=== PATIENT | female | born 1950 | race Caucasian/White ===

== ENCOUNTER 2018-12-03 01:58 | Emergency (ER) | payer OTHER ==
[2018-12-03 02:59] VITALS: BMI 33.6
--- NOTE | 2018-12-03 03:11 | PDOC ---
History of Present Illness - General Chief Complaint: Head/Neck problem Stated Complaint: HIGH BLOOD PRESSURE Time Seen by Provider: 12/03/18 03:02 History Source: Patient Exam Limitations: Language Barrier (Venezuelan) - History of Present Illness Initial Comments: 12/03/18 04:11 Isabel Cordova is a 68F Venezuelan-speaking female with PMH thyroid disease, HTN, IDDM presenting with ACEVES and L arm numbness Reports new onset ACEVES in the back of her head since this morning. Has had ACEVES in the past week but not this bad, resolved spontaneously. Reports fevers, chills, nausea, vomiting. No migraine history. Denies chest pain, SOB, abdominal pain, urinary sx, C/D, changes to vision. Says she has some L arm numbness down to her hand. PMH: HTN on bid medication, unknown which one. Unspecified thyroid disease, unknown medication. IDDM, BG 270 yesterday AM, BG 320 in PM. No PSH. Past History - Past Medical History Allergies/Adverse Reactions: Allergies Allergy/AdvReac Type Severity Reaction Status Date / Time No Known Allergies Allergy Verified 12/03/18 02:59 - Psycho Social/Smoking Cessation Hx Smoking History: Never smoked Hx Alcohol Use: No Drug/Substance Use Hx: No Review of Systems - Review of Systems Able to Perform ROS?: Yes (Silk Opener used) Is the patient limited Kazakh proficient: Yes Constitutional: Yes: Chills, Fever HEENTM: No: Blurred Vision, Double Vision, Hearing Loss, Throat Swelling Respiratory: No: Cough, Shortness of Breath Cardiac (ROS): No: Chest Pain, Syncope ABD/GI: Yes: Nausea, Vomiting. No: Constipated, Diarrhea, Abdominal cramping Musculoskeletal: No: Symptoms Reported Neurological: Yes: Headache, Numbness (L arm). No: Seizure, Tingling, Unsteady Gait Endocrine: No: Symptoms Reported Hematologic/Lymphatic: No: Symptoms Reported All Other Systems: Reviewed and Negative *Physical Exam - Vital Signs Last Vital Signs Temp Pulse Resp BP Pulse Ox 98.8 F 68 17 151/69 99 12/03/18 02:00 12/03/18 02:00 12/03/18 02:00 12/03/18 02:00 12/03/18 02:00 - Physical Exam Comments: 12/03/18 04:34 CN 2-12 grossly intact decreased sensation to L arm to LT, 5/5 motor runner strength, full ROM R am grossly normal abd nontender, soft, no hernia heart RRR no MGR lungs CTAB with good chest rise no pedal edema PERRL, EOMI, no scleral icterus head NCAT General Appearance: Yes: Nourished, Appropriately Dressed, Mild Distress HEENT: positive: EOMI, FLOWER, Normal Voice, Symmetrical, Pharynx Normal, Hearing Grossly Normal. negative: Scleral Icterus (R), Scleral Icterus (L), Muffled/ Hoarse voice, Pharyngeal Erythema, Tonsillar Exudate, Tonsillar Erythema Neck: positive: Normal Thyroid, Supple. negative: Tender, Rigid, Lymphadenopathy (R), Lymphadenopathy (L) Respiratory/Chest: positive: Lungs Clear, Normal Breath Sounds. negative: Chest Tender, Respiratory Distress, Accessory Muscle Use, Crackles, Rales, Rhonchi, Stridor, Wheezing Cardiovascular: positive: Regular Rhythm, Regular Rate. negative: Murmur Gastrointestinal/Abdominal: positive: Normal Bowel Sounds, Flat, Soft, Protuberent. negative: Tender, Guarding, Rebound Musculoskeletal: positive: Normal Inspection. negative: CVA Tenderness Extremity: positive: Normal Capillary Refill, Normal Inspection, Normal Range of Motion Integumentary: positive: Normal Color, Dry, Warm Neurologic: positive: lockstitch waistband setter II-XII NML intact, Fully Oriented, Alert, Normal Mood/ Affect, Normal Response, Motor Strength 5/5, Numbness (L arm from hand to shoulder) ED Treatment Course - LABORATORY CBC & Chemistry Diagram: 12/03/18 03:30 12/03/18 03:30 Medical Decision Making - Medical Decision Making 12/03/18 04:11 Isabel Cordova is a 68F Venezuelan-speaking female with PMH thyroid disease, HTN, IDDM presenting with ACEVES and L arm numbness. Ddx concerning for SAH vs. mass lesion vs. complex migraine vs. hypertensive urgency vs. DKA vs. normal headache. Spinal pathology less likely, no pain, good motor runner strength. Evaluating broadly via: CMP CBC ECG CXR TSH Free T3/T4 UA/UC Head CT Percocet and Reglan IV for ACEVES. 12/03/18 04:36 ECG NSR with incomplete RBBB, HR 69, QTc 452 12/03/18 04:41 Labs notable for: TSH 6.07 consistent for hypothyroidism BG 200 No WBC elevation Trop <0.02 12/03/18 04:56 CT head no acute intracranial pathology. 12/03/18 06:48 Re-evaluated. Patient ACEVES and arm numbness resolved after Percocet/Reglan, feels better, ambulating without assistance. Stable to discharge home with neurology and PMD f/u. Discharge - Discharge Information Problems reviewed: Yes Clinical Impression/Diagnosis: Headache Qualifiers: Headache type: unspecified Headache chronicity pattern: acute headache Intractability: not intractable Qualified Code(s): R51 - Headache Condition: Fair Disposition: HOME - Admission No - Follow up/Referral Referrals: Yandel Baltazar MD [Staff Physician] - - Patient Discharge Instructions Patient Printed Discharge Instructions: DI for Headache Additional Instructions: Hoy fuiste evaluado por un dolor de leia. Dorita anlisis de juan no muestran signos de anemia, infeccin o desequilibrio electroltico. Gonzales tomografa computarizada no muestra ningn sangrado en gonzales cerebro, y gonzales radiografa de trax y ECG no muestran ninguna evidencia de enfermedad cardaca. Le dimos medicamentos llamados Percocet y Reglan para el dolor de leia y se sinti mejor. Gonzales presin arterial no era josé en la kahlil de emergencias. Gonzales dolor de leia es probablemente un dolor de leia normal y no es preocupante en dionicio momento. Checo un seguimiento con gonzales neurlogo para dorita enedelia de leia. Si no tiene haven , utilice la referencia que le estamos dando para el Dr. Baltazar. Consulte a gonzales mdico de atencin primaria para gonzales enfermedad de la tiroides. Checo un seguimiento con gonzales mdico de atencin primaria en los prximos 3 rangel para recibir ms atencin. Si experimenta nuseas, vmitos, dolor en el pecho, dolor abdominal o cualquier otro sntoma nuevo o preocupante, regrese a la kahlil de emergencias. Print Language: [place] IS[place] - Post Discharge Activity
--- NOTE | 2018-12-03 03:35 | PDOC ---
Attending Attestation - Resident Resident Name: Rainer Horton - ED Attending Attestation I have performed the following: I have examined & evaluated the patient, The case was reviewed & discussed with the resident, I agree w/resident's findings & plan - HPI HPI: 12/03/18 04:12 Pt comes with complaint of BP elevation and Headache. - Physicial Exam PE: 12/03/18 04:13 Agree with resident exam - Medical Decision Making 12/03/18 04:12 WBC normal Glc elevated at 200s 12/03/18 04:13 Pt is awaiting results. 12/03/18 04:18 cardiac enzymes negative
[2018-12-03 03:38] LABS: BASO % 0.6 % (0-2.0); EOS % 2.4 % (0-4.5); HEMATOCRIT 38.6 % (32.4-45.2); HEMOGLOBIN 12.7 GM/dL (10.7-15.3); LYMPH % 12.5 % (8-40); MCH 26.8 pg (25.7-33.7); MCHC 32.9 g/dl (32.0-36.0); MEAN CELL VOLUME 81.7 fl (80-96); MEAN PLT VOLUME 8.6 fl (7.5-11.1); MONO % 4.2 % (3.8-10.2); NEUT % 80.3 % (42.8-82.8); PLATELET COUNT 189 K/MM3 (134-434); RBC 4.73 M/mm3 (3.60-5.2); RDW 15.3 % (11.6-15.6); WHITE BLOOD COUNT 8.8 K/mm3 (4.0-10.0)
[2018-12-03] MEDS ORDERED: METOCLOPRAMIDE HCL INJECTION 10 MG/2 ML VIAL IVPUSH ONE (03:46)
[2018-12-03 04:19] LABS: ALBUMIN 3.5 g/dl (3.4-5.0); BILIRUBIN,TOTAL 0.3 mg/dL (0.2-1); BLOOD UREA NITROGEN 8.8 mg/dL (7-18); CALCIUM 8.2 mg/dL (8.5-10.1); CREATININE 0.6 mg/dL (0.55-1.3); POTASSIUM 3.9 mmol/L (3.5-5.1); TOT PROT 6.6 g/dl (6.4-8.2)
[2018-12-03] MEDS ORDERED: METOCLOPRAMIDE HCL INJECTION 10 MG/2 ML VIAL ONE (04:33)
[2018-12-03 06:02] VITALS: BP 127/68; PULSE 65; TEMP 98.3
--- NOTE | 2018-12-03 15:46 | EKG ---
Test Reason : Blood Pressure : / mmHG Vent. Rate : 069 BPM Atrial Rate : 069 BPM P-R Int : 184 ms QRS Dur : 108 ms QT Int : 422 ms P-R-T Axes : 046 -10 053 degrees QTc Int : 452 ms NORMAL SINUS RHYTHM INCOMPLETE RIGHT BUNDLE BRANCH BLOCK INFERIOR INFARCT , AGE UNDETERMINED ABNORMAL ECG NO PREVIOUS ECGS AVAILABLE Confirmed by JOSE ANGEL HOBSON MD ([id number]) on 12/03/2018 3:46:14 PM Referred By: Confirmed By:JOSE ANGEL HOBSON MD
== END 2018-12-03 05:34 | disposition home or self-care (01) ==
LOC: JER 01:58 → EDSEX 01:58 → JER 05:34
PROC: 3E033GC Introduction of Other Therapeutic Substance into Peripheral Vein, Percutaneous Approach (ICD-10-PCS; principal; 2018-12-03)
DX: R51 Headache (principal); I10 Essential (primary) hypertension; E11.9 Type 2 diabetes mellitus without complications; Z79.4 Long term (current) use of insulin; E03.9 Hypothyroidism, unspecified
CPT/HCPCS: 36415; 70450-TC; 71046-TC-FY; 80053; 82010; 82550; 82962; 84439; 84443; 84481; 84484; 85025; 85730; 93005; 93010; 96374; 99284-25

== ENCOUNTER 2019-08-10 23:25 | Inpatient (IN) | payer OTHER ==
[2019-08-10 23:43] VITALS: BMI 35.2
--- NOTE | 2019-08-10 23:47 | PDOC ---
History of Present Illness - General Chief Complaint: Blood Sugar Problem Stated Complaint: SUGER PROBLEMS - History of Present Illness Initial Comments: 69 yo femalewith PMH of HTN and DM presents to the ED with hyperglycemia. Her glucose was measured at a PCP to be ~600 and told to come to ED. She endorses nausea, muscle cramps, and chest pain. She took her home insulin schedule of 45 at home before coming in. Daughter is used as training and development assistant. Her baseline glucose runs from 250 to 300. She endorses dehydration. Past History - Medical History Allergies/Adverse Reactions: Allergies Allergy/AdvReac Type Severity Reaction Status Date / Time No Known Allergies Allergy Verified 12/03/18 02:59 - Psycho-Social/Smoking History Smoking History: Never smoked - Substance Abuse Hx (Audit-C & DAST Scrn) How often the patient has a drink containing alcohol: Never Score: In Men: 4 or > Positive; In Women: 3 or > Positive: 0 Screen Result (Pos requires Nsg. Audit-10AR): Negative In the last yr the pt used illegal drug/Rx for NonMed reason: No Score: Yes response is considered Positive: 0 Screen Result (Positive result requires Nsg. DAST-10): Negative Review of Systems - Review of Systems Constitutional: No: Chills, Fever, Night Sweats HEENTM: No: Blurred Vision, Double Vision, Nose Bleeding Respiratory: No: Orthopnea, Shortness of Breath, Wheezing Cardiac (ROS): Yes: Chest Pain, Chest Tightness. No: Irregular Heart Rate, P alpitations, Syncope ABD/GI: Yes: Nausea. No: Constipated, Diarrhea, Vomiting : No: Dysuria, Pain, Urgency Musculoskeletal: Yes: Muscle Pain (cramping). No: Muscle Weakness Integumentary: No: Erythema, Flushing, Lesions Neurological: Yes: Headache. No: Numbness, Tingling Psychiatric: No: Anxiety, Depression, Mood Swings Endocrine: No: See HPI, Intolerance to Cold, Intolerance to Heat *Physical Exam - Vital Signs Last Vital Signs Temp Pulse Resp BP Pulse Ox 98.6 F 90 20 184/93 H 99 08/10/19 23:37 08/10/19 23:37 08/10/19 23:37 08/10/19 23:37 08/10/19 23:37 - Physical Exam General Appearance: Yes: Nourished, Appropriately Dressed. No: Apparent Distress HEENT: positive: Normal Voice Respiratory/Chest: positive: Lungs Clear, Normal Breath Sounds. negative: Respiratory Distress Cardiovascular: positive: Regular Rhythm, Regular Rate, S1, S2 Musculoskeletal: positive: Normal Inspection. negative: Decreased Range of Motion Extremity: positive: Other (prolonged capillary refill) Integumentary: positive: Normal Color, Dry, Warm Neurologic: positive: Fully Oriented, Alert, Normal Mood/Affect, Normal Response ED Treatment Course - LABORATORY CBC & Chemistry Diagram: 08/11/19 01:06 08/11/19 01:06 Medical Decision Making - Medical Decision Making 69 yo female with PMH of T2DM recommended to come into ED by PCP for hyperglycemia and hyponatremia. Pt measured a glucose of 600 then took 45 units of her home insulin regimen. She reports nausea, cramps, and chest discomfort. Her Na was measured at 125, glucose 214. pH, bicarb, anion gap, BHB, and troponin were all normal. She is being admitted for hyponatremia. Discharge - Discharge Information Problems reviewed: Yes Clinical Impression/Diagnosis: Hyponatremia Condition: Stable - Admission Yes - Follow up/Referral - Patient Discharge Instructions - Post Discharge Activity
[2019-08-11 01:21] LABS: VENOUS BASE EXCESS 2.5 mmol/L (-2-2); VENOUS O2 SATURATION 84.3 % (70-80); VENOUS PCO2 47.1 mmHg (38-52); VENOUS PH 7.392 (7.310-7.410)
[2019-08-11 01:23] LABS: HEMOGLOBIN 11.5 GM/dL (10.7-15.3); MCH 26.9 pg (25.7-33.7); MEAN CELL VOLUME 81.5 fl (80-96); PLATELET COUNT 227 K/MM3 (134-434); RBC 4.29 M/mm3 (3.60-5.2); RDW 15.8 % (11.6-15.6); WHITE BLOOD COUNT 11.6 K/mm3 (4.0-10.0)
[2019-08-11 01:49] LABS: ALBUMIN 3.5 g/dl (3.4-5.0); ALK PHOS 133 U/L (45-117); ANION GAP 9 MMOL/L (8-16); BILIRUBIN,TOTAL 0.4 mg/dL (0.2-1); CALCIUM 7.9 mg/dL (8.5-10.1); CHLORIDE 89 mmol/L (98-107); CO2 27 mmol/L (21-32); CREATININE 0.6 mg/dL (0.55-1.3); GLUCOSE,RANDOM 214 mg/dL (74-106); POTASSIUM 3.5 mmol/L (3.5-5.1); SGOT/AST 18 U/L (15-37); SGPT/ALT 27 U/L (13-61); SODIUM 125 mmol/L (136-145); TOT PROT 6.9 g/dl (6.4-8.2)
[2019-08-11] MEDS ORDERED: SODIUM CHLORIDE 250 ML IV STA (01:58)
--- NOTE | 2019-08-11 02:12 | PN ---
Teaching Attending Note Name of Resident: Fadi Lopes ATTENDING PHYSICIAN STATEMENT I saw and evaluated the patient. I reviewed the resident's note and discussed the case with the resident. I agree with the resident's findings and plan as documented. SUBJECTIVE: Patient is a 69 year old woman with a PMH of HTN , Hypothyroidism, Insulin-treat ed DM and COVID-19 infection in June 2019 who presents to the ER with hyperglycemia. Her glucose was measured at [facility] in [place] and found to be around 600 with low sodium and told to come to the ER. Patient reports nausea, muscle cramps and chest pain. She took her home insulin schedule of 45 u at home before coming to the ER. Her baseline glucose runs from 250 to 300. She has had intermittent chest discomfort, nausea and right leg cramps. She denies fever, chills, cough, SOB, vomiting, abdominal pain, dysuria or diarrhea. Denies alcohol, tobacco or illicit drug use. No sick contacts or recent travels. Family history is unremarkable. OBJECTIVE: Alert Vital Signs Period Temp Pulse Resp BP Sys/Kaye Pulse Ox Last 24 Hr 98.6 F 90 20 184/93 99 HEENT: No Jaundice, eye redness or discharge, PERRLA, EOMI. Normocephalic, atraumatic. External ears are normal and hearing is grossly intact. No nasal discharge. Neck: Supple, nontender. No palpable adenopathy or thyromegaly. No JVD Chest: Good effort. Clear to auscultation and percussion. Heart: Regular. No S3, rub or murmur Abdomen: Not distended, soft, nontender and no HSM. No rebound or guarding. Normal bowel sounds. Ext: Peripheral pulses intact. No leg edema. Skin: Warm and dry. No petechiae, rash or ecchymosis. Neuro: Alert. Oriented x3. CN 2-12 grossly intact. Sensation grossly intact in all four extremities and DTR are symmetric. Psych: Appropriate mood and affect. Good insight. Current Medications Generic Name Dose Route Start Last Admin Trade Name Freq PRN Reason Stop Dose Admin Sodium Chloride 250 mls @ 250 mls/hr 08/11/19 01:58 Normal Saline - IV 08/11/19 02:57 ASDIR STA Abnormal Lab Results 07/05/20 07/05/20 07/05/20 01:06 01:06 01:06 WBC 11.6 H RDW 15.8 H POC VBG pO2 49.3 H VBG O2 Sat (Margie) 84.3 H VBG Base Excess 2.5 H Sodium 125 L Chloride 89 L Random Glucose 214 H Calcium 7.9 L Alkaline Phosphatase 133 H ASSESSMENT AND PLAN: 1. Uncontrolled DM/Hyponatremia Uncontrolled diabetes mellitus likely primarily due to a suboptimal regimen and then poor adherence. Hyponatremia likely partly due to hyperglycemia and ?hypothyroidism. Will check TSH, give IV and PO KCL and NS, limit free water intake and correct hyperglycemia. Will hold the home diabetes drugs and implement sliding scale insulin regimen. Provide comprehensive diabetes care with patient teaching and counseling about the importance of adherence to prescribed diabetes regimen, euglycemia, eye care and foot care. Leukocytosis may be stress induced, but will get urinalysis and CXR stat to rule out infection. EKG shows NSR at 98/minute and prolonged QTc [address]-T wave changes. Initial troponin is negative. Will avoid drugs that may prolong QTc. Viral testing for COVID-19 ordered and patient placed on airborne, droplet and contact isolation. Will continue comprehensive care for all of patients comorbid conditions. 2. Obesity Counseled on the risks associated with obesity. Will provide patient all the necessary assistance, counseling and positive reinforcement to facilitate weight loss. Consult blueprint clerk. 3. Uncontrolled hypertension Will contact her family to bring in a list of her medications. Will check urine protein/creatinine ratio. Will start Lisinopril 20 mg q HS and HCTZ 12.5 mg q am. Subsequently, will revise regimen to ensure [id number] excellent BP control. Patient counseled on the injurious effects of uncontrolled hypertension. Nonpharmacologic measures to control hypertension like weight loss, salt restriction and exercise stressed. Importance of adherence to treatment regimen and attainment of normotension emphasized. 4. DVT prophylaxis - Lovenox 40 mg SQ q 24 hours. 5. Advance directives - Full code
--- NOTE | 2019-08-11 02:19 | PDOC ---
Documentation entered by Lazarus Galeano SCRIBE, acting as scribe for Elaine John MD. Elaine John MD: This documentation has been prepared by the Froylan heck Nirvannie, SCRIBE, under my direction and personally reviewed by me in its entirety. I confirm that the documentation accurately reflects all work, treatment, procedures, and medical decision making performed by me. Attending Attestation - Resident Resident Name: Beth Hill - ED Attending Attestation I have performed the following: I have examined & evaluated the patient, The case was reviewed & discussed with the resident, I agree w/resident's findings & plan, Exceptions are as noted - HPI HPI: 08/11/19 01:03 The patient is a 69 year old female with a significant past medical history of thyroid disease, HTN, IDDM, and covid positive in 06/2019 who presents to the ED with low sodium in the blood. As per patient, she had outpatient labs done at [facility] in [place] a few days ago and her lab results came back today at 6pm with low sodium in the blood, prompting her arrival to the ED. - Physicial Exam PE: 08/11/19 01:03 GENERAL: Awake, alert, and fully oriented, in no acute distress HEAD: No signs of trauma EYES: PERRLA, EOMI, sclera anicteric, conjunctiva clear ENT: Auricles normal inspection, hearing grossly normal, nares patent, oropharynx clear without exudates. Moist mucosa NECK: Normal ROM, supple, no lymphadenopathy, JVD, or masses LUNGS: Breath sounds equal, clear to auscultation bilaterally. No wheezes, and no crackles HEART: Regular rate and rhythm, normal S1 and S2, no murmurs, rubs or gallops ABDOMEN: +Obese. Soft, nontender, normoactive bowel sounds. No guarding, no rebound. No masses EXTREMITIES: Normal range of motion, no edema. No clubbing or cyanosis. No cords, erythema, or tenderness NEUROLOGICAL: Cranial nerves II through XII grossly intact. Normal speech SKIN: Warm, Dry, normal turgor, no rashes or lesions noted. - Medical Decision Making 08/11/19 01:48 BNP normal Glc is 200s CBC normal WBC minimally elevated at 11 08/11/19 02:19 Pt will be admitted for hyponatremia Discharge - Discharge Information Problems reviewed: Yes Clinical Impression/Diagnosis: Hyponatremia Condition: Stable - Follow up/Referral - Patient Discharge Instructions - Post Discharge Activity
--- NOTE | 2019-08-11 03:25 | HP ---
CHIEF COMPLAINT: Hyponatremia and hyperglycemia after having had outpatient lab results Patient reports having had significant outpatient lab results that demonstrated an elevated blood sugar level of 600 and low blood sodium levels. When interviewed the patient is [place]ine[place] speaking. the patient endorses mild chest pain, nausation, and muscle cramps in her R LE. The patient is cooperative and denies diaphoresis, numbness and tingling, dizziness, and shortness of breath. PCP: Dr. De Leon HISTORY OF PRESENT ILLNESS: ER course was notable for: (1)Sodium - 125 (2)Glucose - 214 (3) Chest pain Recent Travel: no PAST MEDICAL HISTORY: Insulin treated diabetes Melitus, HTN, Hypothyroidism, Co vid infection june 2019 PAST SURGICAL HISTORY: Social History: Smoking:no Alcohol: no Drugs: no Allergies No Known Allergies Allergy (Verified 12/03/18 02:59) HOME MEDICATIONS: REVIEW OF SYSTEMS CONSTITUTIONAL: Absent: fever, chills, diaphoresis, generalized weakness, malaise, loss of appetite, weight change HEENT: Absent: rhinorrhea, nasal congestion, throat pain, throat swelling, difficulty swallowing, mouth swelling, ear pain, eye pain, visual changes CARDIOVASCULAR: chest pain Absent:syncope, palpitations, irregular heart rate, lightheadedness, peripheral edema RESPIRATORY: Absent: cough, shortness of breath, dyspnea with exertion, orthopnea, wheezing, stridor, hemoptysis GASTROINTESTINAL: Absent: abdominal pain, abdominal distension, nausea, vomiting, diarrhea, constipation, melena, hematochezia GENITOURINARY: Absent: dysuria, frequency, urgency, hesitancy, hematuria, flank pain, genital pain MUSCULOSKELETAL: Absent: myalgia, arthralgia, joint swelling, back pain, neck pain SKIN: Absent: rash, itching, pallor HEMATOLOGIC/IMMUNOLOGIC: Absent: easy bleeding, easy bruising, lymphadenopathy, frequent infections ENDOCRINE: Absent: unexplained weight gain, unexplained weight loss, heat intolerance, cold intolerance NEUROLOGIC: Absent: headache, focal weakness or paresthesias, dizziness, unsteady gait, seizure, mental status changes, bladder or bowel incontinence PSYCHIATRIC: Absent: anxiety, depression, suicidal or homicidal ideation, hallucinations. PHYSICAL EXAMINATION Vital Signs - 24 hr 08/10/19 23:37 Temperature 98.6 F Pulse Rate 90 Respiratory 20 Rate Blood Pressure 184/93 H O2 Sat by Pulse 99 Oximetry (%) GENERAL: Awake, alert, and fully oriented, in no acute distress. HEAD: Normal with no signs of trauma. EYES: Pupils equal, round and reactive to light, extraocular movements intact, sclera anicteric, conjunctiva clear. No lid lag. EARS, NOSE, THROAT: Ears normal, nares patent, oropharynx clear without exudates. Moist mucous membranes. NECK: Normal range of motion, supple without lymphadenopathy, JVD, or masses. LUNGS: Breath sounds equal, clear to auscultation bilaterally. No wheezes, and no crackles. No accessory muscle use. HEART: Regular rate and rhythm, normal S1 and S2 without murmur, rub or gallop. ABDOMEN: Soft, nontender, not distended, normoactive bowel sounds, no guarding, no rebound, no masses. No hepatomegaly or splenomegaly. MUSCULOSKELETAL: Normal range of motion at all joints. No bony deformities or tenderness. No CVA tenderness. UPPER EXTREMITIES: 2+ pulses, warm, well-perfused. No cyanosis. No clubbing. No peripheral edema. LOWER EXTREMITIES: 2+ pulses, warm, well-perfused. No calf tenderness. No peripheral edema. NEUROLOGICAL: Cranial nerves II-XII intact. Normal speech. Normal gait. PSYCHIATRIC: Cooperative. Good eye contact. Appropriate mood and affect. SKIN: Warm, dry, normal turgor, no rashes or lesions noted, normal capillary refill. Laboratory Results - last 24 hr 08/11/19 08/11/19 08/11/19 00:32 01:06 01:06 WBC 11.6 H RBC 4.29 Hgb 11.5 Hct 35.0 MCV 81.5 MCH 26.9 MCHC 33.0 RDW 15.8 H Plt Count 227 D MPV 8.0 VBG pH POC VBG pCO2 POC VBG pO2 VBG HCO3 VBG O2 Sat (Margie) VBG Base Excess Sodium 125 L Potassium 3.5 Chloride 89 L Carbon Dioxide 27 Anion Gap 9 BUN 11.0 Creatinine 0.6 Est GFR (CKD-EPI)AfAm 108.55 Est GFR (CKD-EPI)NonAf 93.66 POC Glucometer 213 Random Glucose 214 H Calcium 7.9 L Magnesium 2.0 Total Bilirubin 0.4 AST 18 ALT 27 Alkaline Phosphatase 133 H Creatine Kinase 130 Troponin I < 0.02 B-Natriuretic Peptide Total Protein 6.9 Albumin 3.5 Beta-Hydroxybutyrate 1.0 08/11/19 08/11/19 01:06 01:06 WBC RBC Hgb Hct MCV MCH MCHC RDW Plt Count MPV VBG pH 7.392 POC VBG pCO2 47.1 POC VBG pO2 49.3 H VBG HCO3 28.0 VBG O2 Sat (Margie) 84.3 H VBG Base Excess 2.5 H Sodium Potassium Chloride Carbon Dioxide Anion Gap BUN Creatinine Est GFR (CKD-EPI)AfAm Est GFR (CKD-EPI)NonAf POC Glucometer Random Glucose Calcium Magnesium Total Bilirubin AST ALT Alkaline Phosphatase Creatine Kinase Troponin I B-Natriuretic Peptide 106.3 Total Protein Albumin Beta-Hydroxybutyrate ASSESSMENT/PLAN: Patient is a 69F w a pmhx of Insulin treated diabetes Melitus, HTN, Hypothy roidism, Covid infection june 2019. Patient reports to the ED due to concern over hyperglycemia and hyponatremia on outpatient lab results. 1. Hyponatremia/hyperglycemia - patient non controlling diet and medication Regimen - Consult endocrine - A1C - TSH - could be a result of hypothyroidism - education on nutrition and proper diabetic care - education on medication adherence - COVID testing 2. HTn - CONTINUE blood pressure medication -monitor BP to maintain adequate goal - sodium controlled diet - 3. DVT prophylaxis - Lovenox 40mg SQ 4. Advanced directives -full code ATTENDING PHYSICIAN STATEMENT I saw and evaluated the patient. I reviewed the resident's note and discussed the case with the resident. I agree with the resident's findings and plan as documented. SUBJECTIVE: OBJECTIVE: ASSESSMENT AND PLAN:
[2019-08-11 03:49] LABS: PH,URINE 8.5 (5.0-8.0); URINE APPEARANCE CLEAR; URINE BILIRUBIN NEGATIVE (NEGATIVE); URINE COLOR YELLOW; URINE GLUCOSE (UA) NEGATIVE (NEGATIVE); URINE KETONE NEGATIVE (NEGATIVE); URINE LEUK ESTERASE TRACE (NEGATIVE); URINE NITRITE NEGATIVE (NEGATIVE); URINE PROTEIN NEGATIVE (NEGATIVE); URINE UROBILINOGEN 0.2 mg/dL (0.2-1.0)
[2019-08-11 04:20] LABS: URINE RBC 1 /uL (0-23.9); URINE WBC 14 /uL (0-25.8)
[2019-08-11 04:21] LABS: EPI CELLS 16 /uL (0-25.1); URINE BACTERIA 13174 /uL (0-1359)
[2019-08-11] MEDS ORDERED: CEFTRIAXONE 1 GM in DEXTROSE 5%-WATER - 50 ML IVPB SCH (04:53)
[2019-08-11] MEDS ORDERED: CEFTRIAXONE 1 GM/50 ML BAG ONE (05:13)
[2019-08-11] MEDS ORDERED: HEPARIN NA (PORCINE) 5,000 UNITS/ML 1ML VIAL ONE ×2 (05:13→15:09)
[2019-08-11] MEDS: HEPARIN NA (PORCINE) 5,000 UNITS/ML 1ML VIAL SQ SCH ×3 (05:25→21:56)
[2019-08-11 07:32] LABS: 24 HR URINE CREATININE < 13.0 mg/dL (30-150)
[2019-08-11 07:51] LABS: HEMATOCRIT 35.7 % (32.4-45.2); HEMOGLOBIN 11.7 GM/dL (10.7-15.3); MCH 26.3 pg (25.7-33.7); MCHC 32.7 g/dl (32.0-36.0); MEAN CELL VOLUME 80.4 fl (80-96); PLATELET COUNT 221 K/MM3 (134-434); RBC 4.44 M/mm3 (3.60-5.2); RDW 15.6 % (11.6-15.6)
[2019-08-11 08:04] LABS: INR 1.27 (0.83-1.09)
[2019-08-11 08:06] LABS: ACTIVATED PTT 27.5 SECONDS (25.2-36.5)
[2019-08-11 08:12] LABS: ALBUMIN 3.4 g/dl (3.4-5.0); BILIRUBIN,TOTAL 0.6 mg/dL (0.2-1); BLOOD UREA NITROGEN 7.7 mg/dL (7-18); CREATININE 0.4 mg/dL (0.55-1.3); MAGNESIUM 2.3 mg/dL (1.8-2.4); PHOSPHOROUS 4.3 mg/dL (2.5-4.9); POTASSIUM 3.6 mmol/L (3.5-5.1); TOT PROT 6.7 g/dl (6.4-8.2)
[2019-08-11] MEDS ORDERED: amLODIPine BESYLATE 5 MG TABLET (FP) ONE (09:03)
[2019-08-11] MEDS: amLODIPine BESYLATE 10 MG TABLET (FP) PO SCH (09:21)
[2019-08-11] MEDS ORDERED: HYDROCHLOROTHIAZIDE 12.5 MG CAPSULE (FP) PO SCH (10:00)
--- NOTE | 2019-08-11 14:02 | EKG ---
Test Reason : Blood Pressure : / mmHG Vent. Rate : 069 BPM Atrial Rate : 069 BPM P-R Int : 174 ms QRS Dur : 100 ms QT Int : 404 ms P-R-T Axes : 045 -26 068 degrees QTc Int : 432 ms NORMAL SINUS RHYTHM INFERIOR INFARCT (CITED ON OR BEFORE 03-DEC-2018) ABNORMAL ECG WHEN COMPARED WITH ECG OF 11-AUG-2019 01:38, NO SIGNIFICANT CHANGE WAS FOUND Confirmed by JAZLYN ZHU, JOSE ANGEL ([id number]) on 08/11/2019 2:02:25 PM Referred By: Confirmed By:JOSE ANGEL HOBSON MD
--- NOTE | 2019-08-11 14:03 | EKG ---
Test Reason : Blood Pressure : / mmHG Vent. Rate : 075 BPM Atrial Rate : 075 BPM P-R Int : 174 ms QRS Dur : 102 ms QT Int : 376 ms P-R-T Axes : 044 -20 062 degrees QTc Int : 419 ms NORMAL SINUS RHYTHM INCOMPLETE RIGHT BUNDLE BRANCH BLOCK INFERIOR INFARCT (CITED ON OR BEFORE 03-DEC-2018) ABNORMAL ECG WHEN COMPARED WITH ECG OF 03-DEC-2018 03:13, NO SIGNIFICANT CHANGE WAS FOUND Confirmed by JAZLYN ZHU, JOSE ANGEL ([id number]) on 08/11/2019 2:02:40 PM Referred By: Confirmed By:JOSE ANGEL HOBSON MD
[2019-08-11 15:27] LABS: EPI CELLS 9 /uL (0-25.1); HYALINE CASTS 0 /uL (0-3.1); URINE APPEARANCE CLEAR; URINE BACTERIA 76 /uL (0-1359); URINE BILIRUBIN NEGATIVE (NEGATIVE); URINE COLOR YELLOW; URINE GLUCOSE (UA) NEGATIVE (NEGATIVE); URINE KETONE NEGATIVE (NEGATIVE); URINE LEUK ESTERASE TRACE (NEGATIVE); URINE NITRITE NEGATIVE (NEGATIVE); URINE PROTEIN NEGATIVE (NEGATIVE); URINE RBC 3 /uL (0-23.9); URINE WBC 30 /uL (0-25.8)
[2019-08-11] MEDS: INSULIN SLIDING SCALE (NOVOLOG) 1 VIAL SQ SCH ×2 (18:37→22:16)
[2019-08-11] MEDS ORDERED: INSULIN (NOVOLOG) ASPART 100 UNITS/ML 10ML VIAL ONE (20:42)
[2019-08-12] MEDS: HEPARIN NA (PORCINE) 5,000 UNITS/ML 1ML VIAL SQ SCH ×3 (05:32→23:14)
[2019-08-12] MEDS: INSULIN SLIDING SCALE (NOVOLOG) 1 VIAL SQ SCH ×4 (05:59→23:42)
[2019-08-12 08:07] LABS: BASO % 0.8 % (0-2.0); EOS % 1.4 % (0-4.5); HEMATOCRIT 41.6 % (32.4-45.2); HEMOGLOBIN 13.7 GM/dL (10.7-15.3); LYMPH % 13.6 % (8-40); MCH 27.1 pg (25.7-33.7); MEAN CELL VOLUME 82.2 fl (80-96); MEAN PLT VOLUME 8.5 fl (7.5-11.1); MONO % 5.5 % (3.8-10.2); NEUT % 78.7 % (42.8-82.8); PLATELET COUNT 260 K/MM3 (134-434); RBC 5.06 M/mm3 (3.60-5.2); RDW 15.8 % (11.6-15.6); WHITE BLOOD COUNT 9.4 K/mm3 (4.0-10.0)
[2019-08-12 08:30] LABS: ALBUMIN 3.8 g/dl (3.4-5.0); ALK PHOS 108 U/L (45-117); ANION GAP 10 MMOL/L (8-16); BILIRUBIN,TOTAL 0.6 mg/dL (0.2-1); BLOOD UREA NITROGEN 9.2 mg/dL (7-18); CALCIUM 8.7 mg/dL (8.5-10.1); CHLORIDE 98 mmol/L (98-107); CO2 25 mmol/L (21-32); CREATININE 0.5 mg/dL (0.55-1.3); GLUCOSE,RANDOM 154 mg/dL (74-106); POTASSIUM 4.2 mmol/L (3.5-5.1); SGOT/AST 15 U/L (15-37); SGPT/ALT 27 U/L (13-61); SODIUM 133 mmol/L (136-145); TOT PROT 7.6 g/dl (6.4-8.2)
[2019-08-12] MEDS: amLODIPine BESYLATE 10 MG TABLET (FP) PO SCH (09:10)
--- NOTE | 2019-08-12 15:13 | EKG ---
Test Reason : Blood Pressure : / mmHG Vent. Rate : 069 BPM Atrial Rate : 069 BPM P-R Int : 172 ms QRS Dur : 100 ms QT Int : 386 ms P-R-T Axes : 041 -17 041 degrees QTc Int : 413 ms NORMAL SINUS RHYTHM INCOMPLETE RIGHT BUNDLE BRANCH BLOCK INFERIOR INFARCT (CITED ON OR BEFORE 03-DEC-2018) ABNORMAL ECG WHEN COMPARED WITH ECG OF 11-AUG-2019 04:25, NO SIGNIFICANT CHANGE WAS FOUND Confirmed by Gentry Niño ([id number]) on 08/12/2019 3:12:48 PM Referred By: [facility] Confirmed By:Gentry Niño
--- NOTE | 2019-08-12 17:14 | PN ---
Teaching Attending Note Name of Resident: Natacha Plunkett ATTENDING PHYSICIAN STATEMENT I saw and evaluated the patient. I reviewed the resident's note and discussed the case with the resident. I agree with the resident's findings and plan as documented. SUBJECTIVE: Patient seen and examined at bedside, Na improved 133 after DC of HCTZ, had short episode of L sided CP at rest in AM, trop/EKG neg. will obtain Echo and consult cardiology for workup. VSS. OBJECTIVE: GA comfortable, AAox3, speaking in full sentences HEENT NC/AT, EOMI, FLOWER, neck supple, no JVD Chest CTAB, no crackles or wheezing, no TTP L chest wall, no skin rash/vesicles CVS s1, S2+, RRR, no m/r/g appreciated Abd Soft, NT, ND, BS+ Ext No LE edema, ambulates w/o assistance Vital Signs - 24 hr 08/11/19 08/11/19 08/11/19 18:13 21:00 22:00 Temperature 98.2 F 98.2 F Pulse Rate 72 68 Respiratory 18 20 18 Rate Blood Pressure 143/73 142/79 O2 Sat by Pulse 99 Oximetry (%) 08/12/19 08/12/19 08/12/19 01:51 07:23 09:00 Temperature 98.6 F 98.8 F Pulse Rate 70 66 Respiratory 20 20 Rate Blood Pressure 122/58 L 145/75 O2 Sat by Pulse 96 Oximetry (%) 08/12/19 08/12/19 11:00 14:19 Temperature 98.8 F 98.4 F Pulse Rate 78 78 Respiratory 19 18 Rate Blood Pressure 141/81 132/66 O2 Sat by Pulse Oximetry (%) Microbiology 08/11/19 03:26 Urine - Urine Clean Catch Urine Culture - Final Contaminated: Please Repeat Laboratory Results - last 24 hr 08/11/19 08/11/19 08/11/19 05:50 17:53 22:11 WBC RBC Hgb Hct MCV MCH MCHC RDW Plt Count MPV Absolute Neuts (auto) Neutrophils % Lymphocytes % Monocytes % Eosinophils % Basophils % Nucleated RBC % Sodium Potassium Chloride Carbon Dioxide Anion Gap BUN Creatinine Est GFR (CKD-EPI)AfAm Est GFR (CKD-EPI)NonAf POC Glucometer 152 213 Random Glucose Calcium Total Bilirubin AST ALT Alkaline Phosphatase Creatine Kinase Troponin I Total Protein Albumin COVID-19 (LISA) Not detected 08/12/19 08/12/19 08/12/19 05:48 06:30 06:30 WBC 9.4 RBC 5.06 Hgb 13.7 Hct 41.6 D MCV 82.2 MCH 27.1 MCHC 33.0 RDW 15.8 H Plt Count 260 MPV 8.5 Absolute Neuts (auto) 7.4 Neutrophils % 78.7 Lymphocytes % 13.6 Monocytes % 5.5 Eosinophils % 1.4 Basophils % 0.8 Nucleated RBC % 0 Sodium 133 L Potassium 4.2 Chloride 98 Carbon Dioxide 25 Anion Gap 10 BUN 9.2 Creatinine 0.5 L Est GFR (CKD-EPI)AfAm 115.26 Est GFR (CKD-EPI)NonAf 99.45 POC Glucometer 158 Random Glucose 154 H Calcium 8.7 Total Bilirubin 0.6 AST 15 ALT 27 Alkaline Phosphatase 108 Creatine Kinase 63 Troponin I < 0.02 Total Protein 7.6 Albumin 3.8 COVID-19 (LISA) 08/12/19 08/12/19 11:22 16:40 WBC RBC Hgb Hct MCV MCH MCHC RDW Plt Count MPV Absolute Neuts (auto) Neutrophils % Lymphocytes % Monocytes % Eosinophils % Basophils % Nucleated RBC % Sodium Potassium Chloride Carbon Dioxide Anion Gap BUN Creatinine Est GFR (CKD-EPI)AfAm Est GFR (CKD-EPI)NonAf POC Glucometer 174 221 Random Glucose Calcium Total Bilirubin AST ALT Alkaline Phosphatase Creatine Kinase Troponin I Total Protein Albumin COVID-19 (LISA) Current Medications Generic Name Dose Route Start Last Admin Trade Name Freq PRN Reason Stop Dose Admin Amlodipine Besylate 10 mg 08/11/19 10:00 08/12/19 09:10 Norvasc - PO 10 mg DAILY NADYA Administration Heparin Sodium (Porcine) 5,000 unit 08/11/19 06:00 08/12/19 13:50 Heparin - SQ 5,000 unit TID NADYA Administration Insulin Aspart 1 vial 08/11/19 16:30 08/12/19 16:43 Novolog Vial Sliding Scale - SQ 2 units ACHS NADYA Administration Protocol ASSESSMENT AND PLAN: 69 F HCTZ induced hyponatremia IDDM HTN HLD prior COVID pneumonitis in June 2019 Angina Plan: Cont. to hold HCTZ Obtain 2nd set of trops/EKG, Echo to assess for wall motion Cardiology evaluation, patient may need stress testing if never done cont. ISS, keep BGM <180, optimize w/ Statin/ASA, switch Norvasc to MARISELA/ARB COVID negative Patient returns to Dr. De Leon's service in AM DVT ppx: Heparin SC
--- NOTE | 2019-08-12 18:16 | PN ---
Physical Exam: SUBJECTIVE: Patient seen and examined at bedside this morning, No acute events overnight. Patient reported substernal chest pain this morning that lasted about 5-10 minutes. Not related to movement, not pleuritic, not reproducible. Resolved spontaneously. No fevers, chills, headache, dizziness, shortness of breath, abdominal pain, urinary symptoms. OBJECTIVE: Vital Signs Temperature 98.4 F 08/12/19 14:19 Pulse Rate 78 08/12/19 14:19 Respiratory Rate 18 08/12/19 14:19 Blood Pressure 132/66 08/12/19 14:19 O2 Sat by Pulse Oximetry (%) 96 08/12/19 09:00 GENERAL: The patient is awake, alert, and fully oriented, in no acute distress. NECK: supple. LUNGS: Breath sounds equal, clear to auscultation bilaterally, no wheezes, no crackles, no accessory muscle use. HEART: Regular rate and rhythm, S1, S2. ABDOMEN: Soft, nontender, nondistended, normoactive bowel sounds. EXTREMITIES: 2+ pulses, warm, well-perfused, no edema. NEUROLOGICAL: Cranial nerves II through XII grossly intact. Normal speech,normal gait. PSYCH: Normal mood, normal affect. SKIN: Warm, dry, normal turgor, no rashes or lesions noted Laboratory Results - last 24 hr 08/11/19 08/11/19 08/11/19 05:50 17:53 22:11 WBC RBC Hgb Hct MCV MCH MCHC RDW Plt Count MPV Absolute Neuts (auto) Neutrophils % Lymphocytes % Monocytes % Eosinophils % Basophils % Nucleated RBC % Sodium Potassium Chloride Carbon Dioxide Anion Gap BUN Creatinine Est GFR (CKD-EPI)AfAm Est GFR (CKD-EPI)NonAf POC Glucometer 152 213 Random Glucose Calcium Total Bilirubin AST ALT Alkaline Phosphatase Creatine Kinase Troponin I Total Protein Albumin COVID-19 (LISA) Not detected 08/12/19 08/12/19 08/12/19 05:48 06:30 06:30 WBC 9.4 RBC 5.06 Hgb 13.7 Hct 41.6 D MCV 82.2 MCH 27.1 MCHC 33.0 RDW 15.8 H Plt Count 260 MPV 8.5 Absolute Neuts (auto) 7.4 Neutrophils % 78.7 Lymphocytes % 13.6 Monocytes % 5.5 Eosinophils % 1.4 Basophils % 0.8 Nucleated RBC % 0 Sodium 133 L Potassium 4.2 Chloride 98 Carbon Dioxide 25 Anion Gap 10 BUN 9.2 Creatinine 0.5 L Est GFR (CKD-EPI)AfAm 115.26 Est GFR (CKD-EPI)NonAf 99.45 POC Glucometer 158 Random Glucose 154 H Calcium 8.7 Total Bilirubin 0.6 AST 15 ALT 27 Alkaline Phosphatase 108 Creatine Kinase 63 Troponin I < 0.02 Total Protein 7.6 Albumin 3.8 COVID-19 (LISA) 08/12/19 08/12/19 11:22 16:40 WBC RBC Hgb Hct MCV MCH MCHC RDW Plt Count MPV Absolute Neuts (auto) Neutrophils % Lymphocytes % Monocytes % Eosinophils % Basophils % Nucleated RBC % Sodium Potassium Chloride Carbon Dioxide Anion Gap BUN Creatinine Est GFR (CKD-EPI)AfAm Est GFR (CKD-EPI)NonAf POC Glucometer 174 221 Random Glucose Calcium Total Bilirubin AST ALT Alkaline Phosphatase Creatine Kinase Troponin I Total Protein Albumin COVID-19 (LISA) Active Medications Generic Name Dose Route Start Last Admin Trade Name Freq PRN Reason Stop Dose Admin Heparin Sodium (Porcine) 5,000 unit 08/11/19 06:00 08/12/19 13:50 Heparin - SQ 5,000 unit TID NADYA Administration Insulin Aspart 1 vial 08/11/19 16:30 08/12/19 16:43 Novolog Vial Sliding Scale - SQ 2 units ACHS NADYA Administration Protocol Lisinopril 10 mg 08/13/19 10:00 Prinivil PO DAILY NADYA ASSESSMENT/PLAN: Patient is a 69 year old woman with a PMH of HTN , Hypothyroidism, Insulin- treated DM and COVID-19 infection in June 2019 who presents to the ER with hyperglycemia and hyponatremia. #DM -glucose now controlled -Insulin sliding scale implemented -Continue home Insulin Levemir 40u sq HS -BGM ACHS #Hyponatremia -Na 133 today, improving -will continue to monitor #Chest pain -r/o ACS -EKG no changes from previous -trop x1 negative, will order 2nd set -Echo ordered -On ASA and Lipitor -Cardiology consulted. #HTN -On Ramipril 2.5mg at home #Hypothyroidism -On synthroid 25mcg daily as per med rec with pharmacy -but not on patient's current meds -will order TSH and FT4 #FEN -Not on any standing fluids -Hyponatremia, BMP monitoring -Diabetic diet #Prophylaxis -Heparin 5000u sq tid #Disposition -full code -med surg Visit type - Emergency Visit Emergency Visit: Yes ED Registration Date: 08/11/19 Care time: The patient presented to the Emergency Department on the above date and was hospitalized for further evaluation of their emergent condition. - New Patient This patient is new to me today: Yes Date on this admission: 08/12/19 - Critical Care Critical Care patient: No ATTENDING PHYSICIAN STATEMENT I saw and evaluated the patient. I reviewed the resident's note and discussed the case with the resident. I agree with the resident's findings and plan as documented. SUBJECTIVE: OBJECTIVE: ASSESSMENT AND PLAN:
[2019-08-12] MEDS ORDERED: INSULIN (NOVOLOG) ASPART 100 UNITS/ML 10ML VIAL ONE (19:22)
[2019-08-12] MEDS ORDERED: ACETAMINOPHEN 325 MG TABLET (FP) PO ONE (20:30)
[2019-08-12] MEDS ORDERED: GABAPENTIN 300 MG CAPSULE PO SCH (22:00)
[2019-08-12] MEDS ORDERED: ATORVASTATIN CA 40 MG TABLET (FP) PO SCH (22:00)
[2019-08-12] MEDS ORDERED: predniSONE 5 MG TABLET (UD) PO SCH (22:00)
[2019-08-12] MEDS ORDERED: INSULIN (LEVEMIR) 100 UNITS/ML UNITS SQ ONE (22:00)
[2019-08-12] MEDS: ALBUTEROL SO4 HFA INHALER IH SCH (23:15)
[2019-08-13] MEDS: HEPARIN NA (PORCINE) 5,000 UNITS/ML 1ML VIAL SQ SCH ×2 (05:26→14:57)
[2019-08-13] MEDS: INSULIN SLIDING SCALE (NOVOLOG) 1 VIAL SQ SCH ×2 (06:02→12:14)
[2019-08-13] MEDS ORDERED: predniSONE 10 MG TABLET (UD) PO SCH (07:00)
[2019-08-13 07:46] LABS: BASO % 0.6 % (0-2.0); EOS % 1.1 % (0-4.5); HEMATOCRIT 42.3 % (32.4-45.2); HEMOGLOBIN 13.9 GM/dL (10.7-15.3); LYMPH % 15.5 % (8-40); MEAN CELL VOLUME 81.8 fl (80-96); MEAN PLT VOLUME 8.4 fl (7.5-11.1); MONO % 3.6 % (3.8-10.2); NEUT % 79.2 % (42.8-82.8); PLATELET COUNT 248 K/MM3 (134-434); RBC 5.17 M/mm3 (3.60-5.2); RDW 15.9 % (11.6-15.6); WHITE BLOOD COUNT 9.1 K/mm3 (4.0-10.0)
[2019-08-13 08:18] LABS: ALBUMIN 3.7 g/dl (3.4-5.0); BILIRUBIN,TOTAL 0.8 mg/dL (0.2-1); BLOOD UREA NITROGEN 8.1 mg/dL (7-18); CALCIUM 8.8 mg/dL (8.5-10.1); CREATININE 0.6 mg/dL (0.55-1.3); MAGNESIUM 2.5 mg/dL (1.8-2.4); POTASSIUM 4.4 mmol/L (3.5-5.1); TOT PROT 7.9 g/dl (6.4-8.2)
--- NOTE | 2019-08-13 09:28 | PN ---
Teaching Attending Note Name of Resident: Natacha Plunkett ATTENDING PHYSICIAN STATEMENT I saw and evaluated the patient. I reviewed the resident's note and discussed the case with the resident. I agree with the resident's findings and plan as documented. SUBJECTIVE: No new comp OBJECTIVE: Vital Signs Temperature 98.0 F 08/13/19 05:16 Pulse Rate 66 08/13/19 05:16 Respiratory Rate 18 08/13/19 05:16 Blood Pressure 140/79 08/13/19 05:16 O2 Sat by Pulse Oximetry (%) 97 08/12/19 21:00 General: Elderly woman, comfortable, not in distress HEENT mucous membranes moist, no anemia, no jaundice, PERRLA, no nystagmus Neck: No JVD, supple, no bruit, thyroid palpably normal, normal carotid pulsations. Chest: Non-tender, clear to auscultation bilaterally CVS: S1-S2 regular/irregular no murmur/gallop/rub Abdomen: Nondistended, soft, bowel sounds present. Extremities: No edema., No Calf tenderness, pulses present [employer]: AO X3 , no gross motor sensory deficit CBC, BMP 08/13/19 06:41 08/13/19 06:41 Active Medications Albuterol Sulfate (Ventolin Hfa Inhaler -) 2 puff IH RTID [facility] Last Admin: 08/12/19 23:15 Dose: 2 puff Documented by: Aspirin (Asa -) 81 mg PO DAILY [facility] Atorvastatin Calcium (Lipitor -) 40 mg PO HS [facility] Last Admin: 08/12/19 23:14 Dose: 40 mg Documented by: Folic Acid (Folic Acid -) 1 mg PO DAILY [facility] Gabapentin (Neurontin -) 300 mg PO HS [facility] Last Admin: 08/12/19 23:14 Dose: 300 mg Documented by: Heparin Sodium (Porcine) (Heparin -) 5,000 unit SQ TID [facility] Last Admin: 08/13/19 05:26 Dose: 5,000 unit Documented by: Insulin Aspart (Novolog Vial Sliding Scale -) 1 vial SQ ACHS [facility]; Protocol Last Admin: 08/13/19 06:02 Dose: 2 units Documented by: Insulin Detemir (Levemir Vial) 40 units SQ HS [facility] Lisinopril (Prinivil) 10 mg PO DAILY [facility] Non-Formulary Medication (Mirabegron [Myrbetriq]) 50 mg PO DAILY [facility] Prednisone (Deltasone -) 5 mg PO HS [facility] Last Admin: 08/12/19 23:14 Dose: 5 mg Documented by: Prednisone (Deltasone -) 10 mg PO AM [facility] Last Admin: 08/13/19 06:02 Dose: 10 mg Documented by: ASSESSMENT AND PLAN: 89-year-old female history of hypertension, hypercholesteremia, type 2 diabetes mellitus, chronic pain syndrome, complaint of chest pain normal serial cardiac enzyme no acute ST-T changes. History of COVID-19 recovered yesterday admitted with hyponatremia that was detected incid entally on routine laboratory. Acute issues: 1.Hyponatremia: Hypo-osmolar, euvolemic hyponatremia with urine sodium of 63 and urine respiratory 264: Most likely multifactorial possibility of SIADH now corrected continue salt liberal diet free water restriction. Follow-up TSH level. 2. Type 2 diabetes mellitus: Resume home medication on discharge 3. Hypercholesterolemia continue statin 4. History of COVID-19 COVID-19 test negative 5 reactive airway disease continue albuterol Rest continue current management, cleared by cardiology can be discharged home after echocardiogram. Discussed with the team
[2019-08-13] MEDS: ALBUTEROL SO4 HFA INHALER IH SCH ×3 (09:58→14:57)
[2019-08-13] MEDS ORDERED: LISINOPRIL 10 MG TABLET (FP) PO SCH (10:00)
[2019-08-13] MEDS ORDERED: ASPIRIN 81 MG CHEWABLE TABLETS PO SCH (10:00)
[2019-08-13] MEDS ORDERED: PATIENT'S OWN MEDICATION (NON-FORMULARY) (Mirabegron [Myrbetriq] 50 MG) PO SCH (10:00)
[2019-08-13] MEDS ORDERED: FOLIC ACID 1 MG TABLET (FP) PO SCH (10:00)
--- NOTE | 2019-08-13 10:38 | CON.CARD ---
Consult Consult Specialty:: Cardiology Referred by:: Hospitalist Reason for Consultation:: Cardiac evaluation - History of Present Illness Chief Complaint: Epigastic discomfort History of Present Illness: Patient is a 69 year old female (Slovak speaking) with underlying history of HTN, hypercholesterolemia, DM, hypothyroidism and bronchial asthma who presented to [facility] with hyperglycemia and hyponatremia. Her glucose was measured at 600's and with hyponatermia, she was recommended for admission. Currently she complains of epigastric discomfort, but denies chest pain, shortness of breath or palpitations. She complains of productive cough with white sputum. She denies fever or chills. She denies nausea, vomiting, diarrhea or abdominal pain. She denies headache or lightheadedness. - History Source History Provided By: Patient, Medical Record Limitations to Obtaining History: Language Barrier - Past Medical History Cardio/Vascular: Yes: HTN, Hyperlipdemia Pulmonary: Yes: Asthma Endocrine: Yes: Diabetes Mellitus, Hypothyroidism - Past Surgical History Additional Surgical History: Abdominal surgery for hernia - Alcohol/Substance Use Hx Alcohol Use: No History of Substance Use: reports: None - Smoking History Smoking history: Never smoked Home Medications - Allergies Allergies/Adverse Reactions: Allergies Allergy/AdvReac Type Severity Reaction Status Date / Time No Known Allergies Allergy Verified 08/11/19 15:49 - Home Medications Home Medications: Ambulatory Orders Albuterol Sulfate Inhaler - [Ventolin HFA Inhaler -] 2 puff IH TID 08/12/19 Aspirin 81 mg PO DAILY 08/12/19 Atorvastatin Ca [Lipitor] 40 mg PO DAILY 08/12/19 Folic Acid 1 mg PO DAILY 08/12/19 Gabapentin [Neurontin] 300 mg PO HS 08/12/19 Glipizide [Glipizide ER] 08/12/19 Glipizide [Glipizide ER] 5 mg PO DAILY 08/12/19 Insulin Detemir [Levemir Flextouch] 40 unit SQ HS 08/12/19 Levothyroxine [Synthroid -] 25 mcg PO DAILY 08/12/19 Methotrexate [Mexate -] 15 mg PO WEEKLY 08/12/19 Mirabegron [Myrbetriq] 50 mg PO DAILY 08/12/19 Prednisone 5 mg PO HS 08/12/19 Prednisone 10 mg PO AM 08/12/19 Ramipril 2.5 mg PO DAILY 08/12/19 Sertraline HCl [Zoloft] 100 mg PO DAILY 08/12/19 Sitagliptin Phos/Metformin HCl [Janumet 50-1,000 mg Tablet] 1 tablet PO DAILY 08/12/19 Family Medical History Family History: Denies Review of Systems - Review of Systems Constitutional: denies: Chills, Fever Cardiovascular: denies: Chest Pain, Palpitations, Shortness of Breath Respiratory: reports: Cough. denies: Hemoptysis, Orthopnea, PND, SOB, SOB on Exertion Gastrointestinal: denies: Abdominal Pain, Constipation, Diarrhea, Melena, Nausea, Rectal Bleeding, Vomiting Musculoskeletal: denies: Back Pain, Joint Pain Neurological: denies: Dizziness, Headache, Seizure, Syncope Vital Signs: Vital Signs Temperature 98.0 F 08/13/19 05:16 Pulse Rate 66 08/13/19 05:16 Respiratory Rate 18 08/13/19 05:16 Blood Pressure 140/79 08/13/19 05:16 O2 Sat by Pulse Oximetry (%) 97 08/12/19 21:00 Eyes: Yes: PERRL HENT: Yes: Atraumatic Neck: Yes: Supple Respiratory: Yes: CTA Bilaterally Gastrointestinal: Yes: Normal Bowel Sounds, Soft. No: Tenderness Cardiovascular: Yes: Regular Rate and Rhythm JVD: No PMI: Non-Displaced Heart Sounds: Yes: S1, S2. No: Gallop Murmur: No: Systolic Murmur Edema: No - Other Data Labs, Other Data: CBC, BMP 08/13/19 06:41 08/13/19 06:41 INR, PTT INR 1.27 (0.83-1.09) H 08/11/19 06:30 Troponin, BNP 08/12/19 08/12/19 06:30 18:25 Troponin I < 0.02 < 0.02 Laboratory Results - last 24 hr 08/11/19 08/12/19 08/12/19 05:50 06:30 11:22 WBC RBC Hgb Hct MCV MCH MCHC RDW Plt Count MPV Absolute Neuts (auto) Neutrophils % Lymphocytes % Monocytes % Eosinophils % Basophils % Nucleated RBC % Sodium 133 L Potassium 4.2 Chloride 98 Carbon Dioxide 25 Anion Gap 10 BUN 9.2 Creatinine 0.5 L Est GFR (CKD-EPI)AfAm 115.26 Est GFR (CKD-EPI)NonAf 99.45 POC Glucometer 174 Random Glucose 154 H Calcium 8.7 Magnesium Total Bilirubin 0.6 AST 15 ALT 27 Alkaline Phosphatase 108 Creatine Kinase 63 Troponin I < 0.02 Total Protein 7.6 Albumin 3.8 TSH Free T4 COVID-19 (LISA) Not detected 08/12/19 08/12/19 08/12/19 16:40 18:25 23:22 WBC RBC Hgb Hct MCV MCH MCHC RDW Plt Count MPV Absolute Neuts (auto) Neutrophils % Lymphocytes % Monocytes % Eosinophils % Basophils % Nucleated RBC % Sodium Potassium Chloride Carbon Dioxide Anion Gap BUN Creatinine Est GFR (CKD-EPI)AfAm Est GFR (CKD-EPI)NonAf POC Glucometer 221 221 Random Glucose Calcium Magnesium Total Bilirubin AST ALT Alkaline Phosphatase Creatine Kinase 48 Troponin I < 0.02 Total Protein Albumin TSH Free T4 COVID-19 (LISA) 08/13/19 08/13/19 08/13/19 05:56 06:41 06:41 WBC 9.1 RBC 5.17 Hgb 13.9 Hct 42.3 MCV 81.8 MCH 27.0 MCHC 33.0 RDW 15.9 H Plt Count 248 MPV 8.4 Absolute Neuts (auto) 7.2 Neutrophils % 79.2 Lymphocytes % 15.5 Monocytes % 3.6 L Eosinophils % 1.1 Basophils % 0.6 Nucleated RBC % 0 Sodium 132 L Potassium 4.4 Chloride 100 Carbon Dioxide 23 Anion Gap 10 BUN 8.1 Creatinine 0.6 Est GFR (CKD-EPI)AfAm 108.55 Est GFR (CKD-EPI)NonAf 93.66 POC Glucometer 212 Random Glucose 199 H Calcium 8.8 Magnesium 2.5 H Total Bilirubin 0.8 AST 13 L ALT 26 Alkaline Phosphatase 120 H Creatine Kinase Troponin I Total Protein 7.9 Albumin 3.7 TSH 3.74 Free T4 1.08 COVID-19 (LISA) Sinus rhythm with incomplete RBBB and ?inferior infarct Imaging - Results Chest X-ray: Report Reviewed (Unremarkable) EKG: Report Reviewed Problem List - Problems (1) Diabetes mellitus Code(s): E11.9 - TYPE 2 DIABETES MELLITUS WITHOUT COMPLICATIONS (2) Hyperglycemia Code(s): R73.9 - HYPERGLYCEMIA, UNSPECIFIED (3) HTN (hypertension) Code(s): I10 - ESSENTIAL (PRIMARY) HYPERTENSION (4) Hypercholesterolemia Code(s): E78.00 - PURE HYPERCHOLESTEROLEMIA, UNSPECIFIED (5) Hypothyroidism Code(s): E03.9 - HYPOTHYROIDISM, UNSPECIFIED (6) Bronchial asthma Code(s): J45.909 - UNSPECIFIED ASTHMA, UNCOMPLICATED (7) Hyponatremia Code(s): E87.1 - HYPO-OSMOLALITY AND HYPONATREMIA Assessment/Plan 1. HTN 2. DM with hyperglycemia 3. Hypercholesterolemia 4. Bronchial asthma 5. Hypothyroidism 6. Hyponatremia PLAN: 1. Echocardiography to assess LV/RV and valvular function 2. Continue Lisinopril 10 mg QD as tolerated 3. ASA 81 mg QD 4. Atorvastatin 40 mg QHS 5. Correct NA 6. DM management as per primary care team Further plans are to follow. Further cardiac work up can be done as outpatient and patient can follow up in the office. Call [facility], Jose Alfredo Hook MD
[2019-08-13] MEDS ORDERED: MIRABEGRON PO SCH ×2 (11:22)
[2019-08-13 13:56] VITALS: BP 128/72; PULSE 91; TEMP 98.6
--- NOTE | 2019-08-13 15:09 | ECHO ---
Name: MELONYJumana GEOVANNY GARDNER Exam:Adult Echocardiogram Study Date: 08/13/2019 01:47 PM Age: 69 yrs Reason For Study: Chest pain MMode/2D Measurements & Calculations IVSd: 1.1 cm Ao root diam: 3.1 cm LVIDd: 3.1 cm LA dimension: 3.0 cm LVIDs: 2.3 cm LVPWd: 1.3 cm LVPWs: 1.4 cm EDV(Teich): 39.1 ml ESV(Teich): 18.1 ml LAV (MOD-bp): 54.0 ml RV S Nino: 13.1 cm/sec Doppler Measurements & Calculations MV E max nino: 66.1 cm/sec Ao V2 max: 159.8 cm/sec MV A max nino: 95.3 cm/sec Ao max P.2 mmHg MV E/A: 0.69 MV dec time: 0.13 sec LV V1 max P.7 mmHg PA V2 max: 107.9 cm/sec LV V1 max: 138.7 cm/sec PA max P.7 mmHg Med Peak E' Nino: 4.5 cm/sec Med E/e': 14.8 Lat Peak E' Nino: 6.9 cm/sec Lat E/e': 9.6 Left Ventricle The left ventricular size, thickness and function are normal. Ejection Fraction = 54%. Abnormal diast olic relaxation. Right Ventricle The right ventricle is normal in size and function. Atria Normal left and right atrial size and function. Mitral Valve The mitral valve is normal in structure and function. Tricuspid Valve The tricuspid valve is normal in structure and function. Aortic Valve The aortic valve is normal in structure and function. Pulmonic Valve The pulmonic valve is normal in structure and function. Great Vessels The aortic root is normal size. Pericardium/Pleura There is no pericardial effusion. Interpretation Summary The left ventricular size, thickness and function are normal Abnormal diastolic relaxation The right ventricle is normal in size and function. Normal left and right atrial size and function. The mitral valve is normal in structure and function. The tricuspid valve is normal in structure and function. The aortic valve is normal in structure and function. The pulmonic valve is normal in structure and function. Ejection Fraction = 54%. The aortic root is normal size. MD Alan El 08/13/2019 03:09 PM
--- NOTE | 2019-08-13 15:29 | DS ---
Physical Exam: SUBJECTIVE: Patient seen and examined at bedside this morning. OBJECTIVE: Vital Signs Temperature 98.6 F 08/13/19 13:55 Pulse Rate 91 H 08/13/19 13:55 Respiratory Rate 18 08/13/19 13:55 Blood Pressure 128/72 08/13/19 13:55 O2 Sat by Pulse Oximetry (%) 98 08/13/19 09:00 PHYSICAL EXAM GENERAL: The patient is awake, alert, and fully oriented, in no acute distress. NECK: supple. LUNGS: Breath sounds equal, clear to auscultation bilaterally, no wheezes, no crackles, no accessory muscle use. HEART: Regular rate and rhythm, S1, S2. ABDOMEN: Soft, nontender, nondistended, normoactive bowel sounds. EXTREMITIES: 2+ pulses, warm, well-perfused, no edema. NEUROLOGICAL: Cranial nerves II through XII grossly intact. Normal speech,normal gait. PSYCH: Normal mood, normal affect. SKIN: Warm, dry, normal turgor, no rashes or lesions noted LABS Laboratory Results - last 24 hr 08/11/19 08/12/19 08/12/19 05:50 06:30 16:40 WBC RBC Hgb Hct MCV MCH MCHC RDW Plt Count MPV Absolute Neuts (auto) Neutrophils % Lymphocytes % Monocytes % Eosinophils % Basophils % Nucleated RBC % Sodium 133 L Potassium 4.2 Chloride 98 Carbon Dioxide 25 Anion Gap 10 BUN 9.2 Creatinine 0.5 L Est GFR (CKD-EPI)AfAm 115.26 Est GFR (CKD-EPI)NonAf 99.45 POC Glucometer 221 Random Glucose 154 H Calcium 8.7 Magnesium Total Bilirubin 0.6 AST 15 ALT 27 Alkaline Phosphatase 108 Creatine Kinase 63 Troponin I < 0.02 Total Protein 7.6 Albumin 3.8 TSH Free T4 COVID-19 ([facility]) Not detected 08/12/19 08/12/19 08/13/19 18:25 23:22 05:56 WBC RBC Hgb Hct MCV MCH MCHC RDW Plt Count MPV Absolute Neuts (auto) Neutrophils % Lymphocytes % Monocytes % Eosinophils % Basophils % Nucleated RBC % Sodium Potassium Chloride Carbon Dioxide Anion Gap BUN Creatinine Est GFR (CKD-EPI)AfAm Est GFR (CKD-EPI)NonAf POC Glucometer 221 212 Random Glucose Calcium Magnesium Total Bilirubin AST ALT Alkaline Phosphatase Creatine Kinase 48 Troponin I < 0.02 Total Protein Albumin TSH Free T4 COVID-19 ([facility]) 08/13/19 08/13/19 08/13/19 06:41 06:41 12:11 WBC 9.1 RBC 5.17 Hgb 13.9 Hct 42.3 MCV 81.8 MCH 27.0 MCHC 33.0 RDW 15.9 H Plt Count 248 MPV 8.4 Absolute Neuts (auto) 7.2 Neutrophils % 79.2 Lymphocytes % 15.5 Monocytes % 3.6 L Eosinophils % 1.1 Basophils % 0.6 Nucleated RBC % 0 Sodium 132 L Potassium 4.4 Chloride 100 Carbon Dioxide 23 Anion Gap 10 BUN 8.1 Creatinine 0.6 Est GFR (CKD-EPI)AfAm 108.55 Est GFR (CKD-EPI)NonAf 93.66 POC Glucometer 265 Random Glucose 199 H Calcium 8.8 Magnesium 2.5 H Total Bilirubin 0.8 AST 13 L ALT 26 Alkaline Phosphatase 120 H Creatine Kinase Troponin I Total Protein 7.9 Albumin 3.7 TSH 3.74 Free T4 1.08 COVID-19 ([facility]) HOSPITAL COURSE: Date of Admission:08/11/19 Date of Discharge: 08/13/19 Patient is a 69 year old woman with a PMH of HTN , Hypothyroidism, Insulin- treated DM and COVID-19 infection in June 2019 who presents to the ER with hyperglycemia and hyponatremia. #DM -glucose now controlled -Insulin sliding scale implemented -Continue home Insulin Levemir 40u sq HS #Hyponatremia -improving -will continue to monitor -continue liberal salt diet, restrict free water #Chest pain -r/o ACS -EKG no changes from previous -trop x2 negative -Echo showed normal LV, Abnormal diastolic relaxation -On ASA and Lipitor -Cardiology consulted. Recommended follow up as outpatient. #HTN -On Ramipril 2.5mg at home #Hypothyroidism -On synthroid 25mcg daily as per med rec with pharmacy -but not on patient's current meds -TSH and FT4 normal -follow up with pcp Minutes to complete discharge: 38 Discharge Summary Problems reviewed: Yes Reason For Visit: HYPONATREMIA Current Active Problems Bronchial asthma (Acute) Diabetes mellitus (Acute) HTN (hypertension) (Acute) Hypercholesterolemia (Acute) Hyperglycemia (Acute) Hyponatremia (Acute) Hypothyroidism (Acute) Condition: Stable - Instructions Diet, Activity, Other Instructions: Your visit You were admitted to the hospital because you were found to have low sodium. This is the salt content in your blood. You were initially given IV fluids and your sodium level improved. You were also evaluated by the heart doctor because you reported chest pain. An ultrasound of your heart was done. You may follow up with Dr. Hook at his clinic for further work-up. A referral has been provided. Medications please continue your home medications as prescribed. Follow up Please follow up with your primary care doctor within 1-2 weeks. Please follow up with the loop cutter (Dr. Hook) in 1-2 weeks. Please call the office at [phone] to schedule an appointment. Additional info Please call 911 or go to the ED if with any worsening fevers, chills, headache, dizziness, chest pain, shortness of breath, belly pain, or any new concerns noted. Referrals: Jose Alfredo Hook MD [Staff Physician] - Cody De Leon MD [Staff Physician] - Disposition: HOME - Home Medications Comprehensive Discharge Medication List: Ambulatory Orders Albuterol Sulfate Inhaler - [Ventolin HFA Inhaler -] 2 puff IH TID 08/12/19 Aspirin 81 mg PO DAILY 08/12/19 Atorvastatin Ca [Lipitor] 40 mg PO DAILY 08/12/19 Folic Acid 1 mg PO DAILY 08/12/19 Gabapentin [Neurontin] 300 mg PO HS 08/12/19 Glipizide [Glipizide ER] 5 mg PO DAILY 08/12/19 Insulin Detemir [Levemir Flextouch] 40 unit SQ HS 08/12/19 Levothyroxine [Synthroid -] 25 mcg PO DAILY 08/12/19 Methotrexate [Mexate -] 15 mg PO WEEKLY 08/12/19 Mirabegron [Myrbetriq] 50 mg PO DAILY 08/12/19 Prednisone 5 mg PO HS 08/12/19 Prednisone 10 mg PO AM 08/12/19 Ramipril 2.5 mg PO DAILY 08/12/19 Sertraline HCl [Zoloft] 100 mg PO DAILY 08/12/19 Sitagliptin Phos/Metformin HCl [Janumet 50-1,000 mg Tablet] 1 tablet PO DAILY 08/12/19 This patient is new to me today: No Emergency Visit: Yes ED Registration Date: 08/11/19 Care time: The patient presented to the Emergency Department on the above date and was hospitalized for further evaluation of their emergent condition. Critical Care patient: No - Discharge Referral Referred to [facility] No ATTENDING PHYSICIAN STATEMENT I saw and evaluated the patient. I reviewed the resident's note and discussed the case with the resident. I agree with the resident's findings and plan as documented. SUBJECTIVE: OBJECTIVE: ASSESSMENT AND PLAN:
[2019-08-13] MEDS ORDERED: INSULIN (LEVEMIR) 100 UNITS/ML UNITS SQ SCH (22:00)
== END 2019-08-13 16:38 | disposition home health service (06) | DRG 638 ==
LOC: JER 23:25 → JERBED 08-11 03:21 → J7W 08-11 19:05
PROVIDERS: ADMIT Internal Medicine; ATTEND Internal Medicine
DX: E11.65 Type 2 diabetes mellitus with hyperglycemia (principal); E87.1 Hypo-osmolality and hyponatremia; E03.9 Hypothyroidism, unspecified; Z79.4 Long term (current) use of insulin; I10 Essential (primary) hypertension; Z86.19 Personal history of other infectious and parasitic diseases; E66.9 Obesity, unspecified; Z68.35 Body mass index [BMI] 35.0-35.9, adult; R07.9 Chest pain, unspecified; G89.4 Chronic pain syndrome; E78.00 Pure hypercholesterolemia, unspecified; J45.909 Unspecified asthma, uncomplicated
CPT/HCPCS: 36415; 71045-TC-FY; 80053; 81003; 82010; 82436; 82550; 82570; 82803; 82962; 83735; 83880; 83930; 83935; 84100; 84133; 84156; 84300; 84439; 84443; 84484; 85025; 85027; 85610; 85730; 87086; 93005; 93010; 93306-TC; 99285-25; J1644; U0003

== ENCOUNTER 2021-02-10 00:49 | Observation (INO) | payer OTHER ==
[2021-02-10] MEDS ORDERED: ACETAMINOPHEN 1000 MG/100 ML BAG IVPB ONE (02:25)
[2021-02-10] MEDS ORDERED: ACETAMINOPHEN INJECTION 100 ML IVPB ONE (02:51)
[2021-02-10 03:02] LABS: BASO % 0.6 % (0-2.0); EOS % 1.6 % (0-4.5); HEMATOCRIT 38.5 % (32.4-45.2); HEMOGLOBIN 13.1 GM/dL (10.7-15.3); LYMPH % 15.4 % (8-40); MCH 27.5 pg (25.7-33.7); MEAN CELL VOLUME 80.9 fl (80-96); MONO % 7.5 % (3.8-10.2); NEUT % 74.9 % (42.8-82.8); PLATELET COUNT 181 10^3/uL (134-434); RBC 4.76 M/mm3 (3.60-5.2); RDW 14.8 % (11.6-15.6); WHITE BLOOD COUNT 7.3 K/mm3 (4.0-10.0)
[2021-02-10 03:03] LABS: EPI CELLS 23 /uL (0-25.1); HYALINE CASTS 0 /uL (0-3.1); URINE APPEARANCE CLEAR; URINE BACTERIA 4847 /uL (0-1359); URINE BILIRUBIN NEGATIVE (NEGATIVE); URINE COLOR YELLOW; URINE GLUCOSE (UA) NEGATIVE (NEGATIVE); URINE KETONE NEGATIVE (NEGATIVE); URINE LEUK ESTERASE 1+ (NEGATIVE); URINE NITRITE NEGATIVE (NEGATIVE); URINE PROTEIN NEGATIVE (NEGATIVE); URINE RBC 2 /uL (0-23.9); URINE UROBILINOGEN 0.2 mg/dL (0.2-1.0); URINE WBC 39 /uL (0-25.8)
[2021-02-10 03:20] LABS: CHLORIDE 98 mmol/L (98-107); SODIUM 130 mmol/L (136-145)
[2021-02-10 03:25] LABS: ANION GAP 8 MMOL/L (8-16); BLOOD UREA NITROGEN 7.4 mg/dL (7-18); CALCIUM 8.4 mg/dL (8.5-10.1); CO2 24 mmol/L (21-32); GLUCOSE,RANDOM 197 mg/dL (74-106); MAGNESIUM 1.9 mg/dL (1.8-2.4)
[2021-02-10 03:26] LABS: ALBUMIN 3.6 g/dl (3.4-5.0)
[2021-02-10 03:28] LABS: CREATININE 0.7 mg/dL (0.55-1.3); SGOT/AST 16 U/L (15-37); SGPT/ALT 23 U/L (13-61)
[2021-02-10 03:29] LABS: BILIRUBIN,TOTAL 0.5 mg/dL (0.2-1); TOT PROT 7.2 g/dl (6.4-8.2)
[2021-02-10 03:35] LABS: ALK PHOS 112 U/L (45-117)
[2021-02-10] MEDS ORDERED: CEPHALEXIN MONOHYDRATE 500 MG CAPSULE (UD) PO ONE (03:36)
[2021-02-10] MEDS ORDERED: CEFTRIAXONE 1 GM in DEXTROSE 5%-WATER - 100 ML IVPB ONE (03:37)
[2021-02-10] MEDS ORDERED: CEFTRIAXONE 1 GM/50 ML BAG ONE ×2 (04:33→09:29)
[2021-02-10] MEDS: INSULIN SLIDING SCALE (NOVOLOG) 1 VIAL SQ SCH ×3 (07:39→18:21)
[2021-02-10] MEDS ORDERED: LEVOTHYROXINE NA 25 MCG TABLET (FP) ONE (07:41)
[2021-02-10] MEDS ORDERED: ACETAMINOPHEN 325 MG TABLET (FP) ONE (07:41)
[2021-02-10] MEDS: LEVOTHYROXINE NA 25 MCG TABLET (FP) PO SCH (07:48)
[2021-02-10] MEDS: ACETAMINOPHEN 325 MG TABLET (FP) PO PRN (07:48)
[2021-02-10] MEDS ORDERED: ASPIRIN 81 MG CHEWABLE TABLETS ONE (09:27)
[2021-02-10] MEDS ORDERED: RAMIPRIL 5 MG CAPSULE ONE (09:27)
[2021-02-10] MEDS ORDERED: SERTRALINE HCL 50 MG TABLET (FP) ONE (09:28)
[2021-02-10] MEDS ORDERED: ENOXAPARIN NA (PORCINE) 40 MG/0.4 ML DISP.SYRIN SQ ONE (09:28)
[2021-02-10] MEDS: ASPIRIN 81 MG CHEWABLE TABLETS PO SCH (09:35)
[2021-02-10] MEDS: RAMIPRIL 5 MG CAPSULE PO SCH (09:35)
[2021-02-10] MEDS: ENOXAPARIN NA (PORCINE) 40 MG/0.4 ML DISP.SYRIN SQ SCH (09:36)
[2021-02-10] MEDS: SERTRALINE HCL 50 MG TABLET (FP) PO SCH (09:36)
[2021-02-10] MEDS: HYDROCHLOROTHIAZIDE 12.5 MG CAPSULE (FP) PO SCH (09:36)
[2021-02-10] MEDS: CEFTRIAXONE 1 GM in DEXTROSE 5%-WATER - 50 ML IVPB SCH (09:36)
[2021-02-10] MEDS ORDERED: ATORVASTATIN CA 40 MG TABLET (FP) PO SCH ×2 (10:00→22:00)
[2021-02-10 11:33] LABS: CHLORIDE 103 mmol/L (98-107); SODIUM 138 mmol/L (136-145)
[2021-02-10 11:38] LABS: ANION GAP 11 MMOL/L (8-16); BLOOD UREA NITROGEN 5.6 mg/dL (7-18); CALCIUM 8.4 mg/dL (8.5-10.1); CO2 24 mmol/L (21-32)
[2021-02-10 11:39] LABS: ALBUMIN 3.4 g/dl (3.4-5.0); GLUCOSE,RANDOM 137 mg/dL (74-106)
[2021-02-10 11:41] LABS: CHOLESTEROL 182 mg/dL (50-200); CREATININE 0.5 mg/dL (0.55-1.3); SGOT/AST 15 U/L (15-37); SGPT/ALT 23 U/L (13-61)
[2021-02-10 11:42] LABS: BILIRUBIN,TOTAL 0.7 mg/dL (0.2-1); LDL CHOLESTEROL (ONLY SJRH) 112 mg/dL (5-100)
[2021-02-10 11:43] LABS: TRIGLYCERIDES 109 mg/dL (0-150)
[2021-02-10 11:44] LABS: ALK PHOS 100 U/L (45-117); HDL CHOLESTEROL 54 mg/dL (40-60)
[2021-02-10] MEDS ORDERED: GABAPENTIN 300 MG CAPSULE PO SCH (22:00)
[2021-02-10] MEDS ORDERED: LIDOCAINE PATCH REMOVAL MC SCH (22:00)
[2021-02-11] MEDS ORDERED: ATORVASTATIN CA 40 MG TABLET (FP) ONE (00:50)
[2021-02-11] MEDS ORDERED: GABAPENTIN 100 MG CAPSULE ONE (00:50)
[2021-02-11] MEDS ORDERED: LIDOCAINE 5% TOPICAL PATCH ONE (00:50)
[2021-02-11] MEDS: LIDOCAINE 5% TOPICAL PATCH TP SCH ×2 (00:52→12:09)
[2021-02-11] MEDS: BUDESONIDE/FORMETEROL FUMARATE 80/4.5 mcg INHALER IH SCH ×2 (00:53→16:19)
[2021-02-11] MEDS: INSULIN SLIDING SCALE (NOVOLOG) 1 VIAL SQ SCH ×4 (00:53→17:09)
[2021-02-11 06:32] VITALS: BMI 34.0
[2021-02-11] MEDS: LEVOTHYROXINE NA 25 MCG TABLET (FP) PO SCH (07:16)
[2021-02-11] MEDS ORDERED: DEXTROSE 5%-WATER - 50 ML IVPB ONE (09:41)
[2021-02-11] MEDS ORDERED: cefTRIAXone SODIUM 1 GM VIAL ONE (09:41)
[2021-02-11] MEDS ORDERED: REGADENOSON 0.4 MG/5 ML PRE-FILLED SYRINGE IVPUSH ONE ×2 (09:45→10:36)
[2021-02-11 12:09] VITALS: BP 143/73; PULSE 66; TEMP 99
[2021-02-11] MEDS: RAMIPRIL 5 MG CAPSULE PO SCH (12:09)
[2021-02-11] MEDS: ASPIRIN 81 MG CHEWABLE TABLETS PO SCH (12:10)
[2021-02-11] MEDS: HYDROCHLOROTHIAZIDE 12.5 MG CAPSULE (FP) PO SCH (12:10)
[2021-02-11] MEDS: SERTRALINE HCL 50 MG TABLET (FP) PO SCH (12:10)
[2021-02-11] MEDS: CEFTRIAXONE 1 GM in DEXTROSE 5%-WATER - 50 ML IVPB SCH (12:11)
[2021-02-11] MEDS: ENOXAPARIN NA (PORCINE) 40 MG/0.4 ML DISP.SYRIN SQ SCH (12:11)
[2021-02-11] MEDS: ACETAMINOPHEN 325 MG TABLET (FP) PO PRN (12:13)
[2021-02-11] MEDS ORDERED: PT OWN MED DRAWER 7, Y5N ONE (13:56)
== END 2021-02-11 20:10 | disposition home or self-care (01) ==
LOC: JER 00:49 → JERBED 04:38 → J4W 02-11 05:32
PROVIDERS: ADMIT Internal Medicine; ATTEND Nurse Practitioner Family
PROC: 3E033NZ Introduction of Analgesics, Hypnotics, Sedatives into Peripheral Vein, Percutaneous Approach (ICD-10-PCS; principal; 2021-02-10)
PROC: 3E03329 Introduction of Other Anti-infective into Peripheral Vein, Percutaneous Approach (ICD-10-PCS; 2021-02-10)
PROC: 3E023GC Introduction of Other Therapeutic Substance into Muscle, Percutaneous Approach (ICD-10-PCS; 2021-02-10)
DX: N39.0 Urinary tract infection, site not specified (principal); R07.9 Chest pain, unspecified; I10 Essential (primary) hypertension; E78.5 Hyperlipidemia, unspecified; R30.0 Dysuria; E11.9 Type 2 diabetes mellitus without complications; E03.9 Hypothyroidism, unspecified; E66.9 Obesity, unspecified; Z68.34 Body mass index [BMI] 34.0-34.9, adult; M19.90 Unspecified osteoarthritis, unspecified site
CPT/HCPCS: 36415; 70450-TC; 71045-TC-FY; 78452-TC; 80053; 80061; 81003; 82962; 83036; 83735; 84443; 84484; 85025; 87086; 87186; 93005; 93010; 93017; 93306-TC; 93880-TC; 96365; 96366; 96372; 96375; 99285-25; A9502; C9803-CS; G0378; J2785; U0003; U0005

== ENCOUNTER 2024-01-28 20:40 | Inpatient (IN) | payer OTHER ==
[2024-01-28] MEDS: LACTATED RINGERS SOLUTION 1000 ML INFUS.BAG IV ONE (21:38)
[2024-01-28 21:45] LABS: BASO % 0.2 % (0-2.0); EOS % 1.7 % (0-4.5); HEMATOCRIT 44.4 % (32.4-45.2); HEMOGLOBIN 14.2 GM/dL (10.7-15.3); LYMPH % 14.8 % (8-40); MCH 26.3 pg (25.7-33.7); MCHC 31.9 g/dl (32.0-36.0); MEAN CELL VOLUME 82.4 fl (80-96); NEUT % 78.3 % (42.8-82.8); PLATELET COUNT 240 10^3/uL (134-434); RBC 5.39 M/mm3 (3.60-5.2); RDW 15.5 % (11.6-15.6); WHITE BLOOD COUNT 6.3 K/mm3 (4.0-10.0)
[2024-01-28 21:46] LABS: VENOUS BASE EXCESS 1.3 mmol/L (-2-2); VENOUS O2 SATURATION 84.5 % (70-80); VENOUS PCO2 43.3 mmHg (38-52); VENOUS PH 7.402 (7.310-7.410)
[2024-01-28 22:05] LABS: POTASSIUM 3.6 mmol/L (3.5-5.1)
[2024-01-28 22:06] LABS: ALBUMIN 3.6 g/dl (3.4-5.0)
[2024-01-28 22:07] LABS: BLOOD UREA NITROGEN 12.5 mg/dL (7-18)
[2024-01-28 22:08] LABS: MAGNESIUM 2.4 mg/dL (1.8-2.4)
[2024-01-28 22:12] LABS: CREATININE 0.6 mg/dL (0.55-1.3)
[2024-01-28 22:13] LABS: BILIRUBIN,TOTAL 0.4 mg/dL (0.2-1); TOT PROT 7.1 g/dl (6.4-8.2)
[2024-01-28 23:15] LABS: PH,URINE 6.5 (5.0-8.0); URINE APPEARANCE CLEAR; URINE BILIRUBIN NEGATIVE (NEGATIVE); URINE COLOR YELLOW; URINE GLUCOSE (UA) 3+ (NEGATIVE); URINE KETONE TRACE (NEGATIVE); URINE LEUK ESTERASE NEGATIVE (NEGATIVE); URINE NITRITE NEGATIVE (NEGATIVE); URINE PROTEIN NEGATIVE (NEGATIVE); URINE UROBILINOGEN 0.2 mg/dL (0.2-1.0)
[2024-01-29] MEDS: INSULIN REGULAR HUMAN 100 UNITS/ML *VIAL IVPUSH ONE (01:43)
[2024-01-29] MEDS: ACETAMINOPHEN 1000 MG/100 ML BAG IVPB ONE (03:07)
[2024-01-29] MEDS: ACETAMINOPHEN 325 MG TABLET (FP) PO PRN (05:28)
[2024-01-29] MEDS: SODIUM CHLORIDE 1,000 ML IV SCH (05:29)
[2024-01-29] MEDS: LEVOTHYROXINE NA 25 MCG TABLET (FP) PO SCH (06:56)
[2024-01-29 07:10] VITALS: RESP 18; BMI 34.7
[2024-01-29] MEDS: INSULIN (LEVEMIR) 100 UNITS/ML UNITS SQ SCH (09:13)
[2024-01-29] MEDS: SERTRALINE HCL 50 MG TABLET (FP) PO SCH (09:30)
[2024-01-29] MEDS: ENOXAPARIN NA (PORCINE) 40 MG/0.4 ML DISP.SYRIN SQ SCH (09:31)
[2024-01-29] MEDS: ASPIRIN 81 MG CHEWABLE TABLETS PO SCH (09:31)
[2024-01-29 09:43] LABS: BASO % 0.2 % (0-2.0); EOS % 2.2 % (0-4.5); HEMATOCRIT 39.5 % (32.4-45.2); HEMOGLOBIN 13.2 GM/dL (10.7-15.3); MCH 27.1 pg (25.7-33.7); MCHC 33.5 g/dl (32.0-36.0); MEAN PLT VOLUME 8.2 fl (7.5-11.1); MONO % 6.1 % (3.8-10.2); NEUT % 75.5 % (42.8-82.8); PLATELET COUNT 215 10^3/uL (134-434); RBC 4.87 M/mm3 (3.60-5.2); RDW 15.3 % (11.6-15.6); WHITE BLOOD COUNT 5.7 K/mm3 (4.0-10.0)
[2024-01-29] MEDS ORDERED: PATIENT'S OWN MEDICATION (NON-FORMULARY) (Mirabegron [Myrbetriq] 50 MG Tab.Er.24h) PO SCH (10:00)
[2024-01-29] MEDS ORDERED: RAMIPRIL 2.5 MG CAPSULE PO SCH (10:00)
[2024-01-29] MEDS ORDERED: HYDROCHLOROTHIAZIDE 12.5 MG CAPSULE (FP) PO SCH (10:00)
[2024-01-29] MEDS: BUDESONIDE/FORMETEROL FUMARATE 80/4.5 mcg INHALER IH SCH (10:24)
[2024-01-29 10:46] LABS: POTASSIUM 3.8 mmol/L (3.5-5.1)
[2024-01-29 10:52] LABS: ALBUMIN 3.1 g/dl (3.4-5.0); CALCIUM 8.2 mg/dL (8.5-10.1); MAGNESIUM 2.4 mg/dL (1.8-2.4)
[2024-01-29 10:55] LABS: CREATININE 0.4 mg/dL (0.55-1.3)
[2024-01-29 10:56] LABS: PHOSPHOROUS 4.4 mg/dL (2.5-4.9)
[2024-01-29 10:57] LABS: BILIRUBIN,TOTAL 0.5 mg/dL (0.2-1); TOT PROT 6.2 g/dl (6.4-8.2)
[2024-01-29] MEDS ORDERED: ALBUTEROL SO4 HFA INHALER IH PRN (11:20)
[2024-01-29] MEDS ORDERED: traMADol HCL 50 MG TABLET PO PRN (16:25)
[2024-01-29] MEDS: INSULIN ASPART SLIDING SCALE (NOVOLOG) 1 VIAL SQ SCH (16:55)
[2024-01-29] MEDS: ATORVASTATIN CA 40 MG TABLET (FP) PO SCH (21:29)
[2024-01-29] MEDS ORDERED: INSULIN (LEVEMIR) 100 UNITS/ML UNITS SQ SCH (22:00)
[2024-01-29] MEDS ORDERED: traZODone HCL 50 MG TABLET (FP) PO SCH (22:00)
[2024-01-29] MEDS ORDERED: GABAPENTIN 300 MG CAPSULE PO SCH (22:00)
[2024-01-30] MEDS: INSULIN (LEVEMIR) 100 UNITS/ML UNITS SQ SCH (06:00)
[2024-01-30 10:01] LABS: HEMATOCRIT 42.8 % (32.4-45.2); HEMOGLOBIN 13.7 GM/dL (10.7-15.3); MCH 26.4 pg (25.7-33.7); MCHC 31.9 g/dl (32.0-36.0); MEAN CELL VOLUME 82.6 fl (80-96); MEAN PLT VOLUME 8.3 fl (7.5-11.1); PLATELET COUNT 232 10^3/uL (134-434); RBC 5.18 M/mm3 (3.60-5.2); RDW 15.5 % (11.6-15.6); WHITE BLOOD COUNT 6.2 K/mm3 (4.0-10.0)
[2024-01-30 10:11] LABS: POTASSIUM 3.9 mmol/L (3.5-5.1)
[2024-01-30 10:14] LABS: ALBUMIN 3.1 g/dl (3.4-5.0); CALCIUM 8.3 mg/dL (8.5-10.1)
[2024-01-30 10:15] LABS: BLOOD UREA NITROGEN 12.6 mg/dL (7-18)
[2024-01-30 10:18] LABS: CREATININE 0.5 mg/dL (0.55-1.3)
[2024-01-30 10:19] LABS: BILIRUBIN,TOTAL 0.4 mg/dL (0.2-1); TOT PROT 6.5 g/dl (6.4-8.2)
[2024-01-30] MEDS: FLU VACCINE (FLULAVAL) PF 45 MCG/0.5 ML SYRINGE 2024-2025 IM ONE (10:41)
[2024-01-30] MEDS: POLYETHYLENE GLYCOL (HEALTHYLAX) 3350 17 GM PACKET PO SCH (14:51)
[2024-01-30] MEDS: traZODone HCL 50 MG TABLET (FP) PO SCH (21:41)
[2024-01-31] MEDS: BISACODYL 10 MG SUPP.RECT PR PRN (09:17)
[2024-01-31 09:45] VITALS: PULSE 78
[2024-01-31] MEDS: SENNOSIDES 8.8 MG/5 ML SYRUP PO ONE (11:13)
[2024-01-31 13:23] VITALS: BP 135/76; TEMP 98.4
== END 2024-01-31 14:49 | disposition home or self-care (01) | DRG 639 ==
LOC: JER 20:40 → JERBED 23:37 → J5S 01-29 03:47 → OBSVTOIN 01-29 15:18
PROVIDERS: ADMIT Internal Medicine; ATTEND Internal Medicine
DX: E11.65 Type 2 diabetes mellitus with hyperglycemia (principal); M54.16 Radiculopathy, lumbar region; M85.80 Other specified disorders of bone density and structure, unspecified site; M54.2 Cervicalgia; K59.00 Constipation, unspecified; M79.604 Pain in right leg; I10 Essential (primary) hypertension; E03.9 Hypothyroidism, unspecified; J45.909 Unspecified asthma, uncomplicated; F41.8 Other specified anxiety disorders; W18.30XA Fall on same level, unspecified, initial encounter; M25.511 Pain in right shoulder; R10.11 Right upper quadrant pain; Z91.81 History of falling; Y92.099 Unspecified place in other non-institutional residence as the place of occurrence of the external cause; Y99.9 Unspecified external cause status
CPT/HCPCS: 0241U-QW; 36415; 70450-TC; 70551-TC; 71045-TC-FY; 72125-TC; 72131-TC; 73030-TC-RT-FY; 73502-TC-RT-FY; 80053; 81003; 82010; 82803; 82962; 83036; 83690; 83735; 84100; 84484; 85025; 85027; 87086; 90656; 93005; 93010; 97116-GP; 97161-GP; 99285-25; G0008; G0378